=== PATIENT | female | born 1980 | race Two or more races ===

== ENCOUNTER 2019-09-16 18:17 | Emergency (ER) | payer MEDICAID, OTHER ==
[~2019-09-16] VITALS: Ht 152.4 cm; Wt 61.2 kg
[2019-09-16] MEDS ORDERED: Phenazopyridine 200mg tab ORAL ONE (18:30)
[2019-09-16 18:59] LABS: APPEARANCE,URINE VERY CLOUDY; BILIRUBIN, URINE NEGATIVE (NEGATIVE); COLOR,URINE PALE YELLOW; GLUCOSE, URINE (UA) NEGATIVE (NEGATIVE); KETONES,URINE NEGATIVE (NEGATIVE); LEUKOCYTE ESTERASE ,URINE 3+ (NEGATIVE); NITRITE,URINE POSITIVE (NEGATIVE); PH,URINE 9 (4.5-8.0); PROTEIN,URINE 4+ (NEGATIVE); UROBILINOGEN,URINE NORMAL MG/DL (0.0-1.0)
[2019-09-16] MEDS ORDERED: cefTRIAXone 1 GM in NS 55 ML IVPB ONE (19:00)
[2019-09-16] MEDS ORDERED: Hydrogen Peroxide 473ml Bottle TOPIC ONE (19:00)
[2019-09-16 19:02] VITALS: BP 130/87
[2019-09-16 19:24] LABS: BASOPHILS % (AUTO) 0.6 % (0.0-2.0); EOSINOPHILS % (AUTO) 3.2 % (0.0-3.0); HEMATOCRIT 38.1 % (37.0-47.0); LYMPHOCYTES % (AUTO) 25.6 % (20.0-45.0); MEAN CORPUSCULAR VOLUME 92 FL (80-99); NEUTROPHILS % (AUTO) 58.6 % (45.0-75.0); PLATELET COUNT 208 K/UL (150-450); RED BLOOD COUNT 4.16 M/UL (4.20-5.40); RED CELL DISTRIBUTION WIDTH 12.8 % (11.6-14.8); WHITE BLOOD COUNT 5.3 K/UL (4.8-10.8)
[2019-09-16 19:39] LABS: ANION GAP 10 mmol/L (5-15); BLOOD UREA NITROGEN 22 mg/dL (7-18); CALCIUM 8.7 MG/DL (8.5-10.1); CARBON DIOXIDE 27 MMOL/L (21-32); CHLORIDE 102 MMOL/L (98-107); POTASSIUM 3.5 MMOL/L (3.5-5.1); SODIUM 139 MMOL/L (136-145)
--- NOTE | 2019-09-16 20:05 | Emergency Room Report ---
History of Present Illness General Chief Complaint: Female Urogenital Problems Source: Patient (Kat Sanchez) Present Illness HPI 39 YO female presents to the ED c/o 10/11 in severity midline lower abdominal pain with dysuria and urinary frequency and urgency x 1 week. She reports fevers and chills x2 days. She denies nausea, vomiting or diarrhea. Patient does report some constipation and states that she has not had a bowel movement in 2 days and her last bowel movement she had to strain. Patient denies blood in the stool or black tarry stools. She denies suspicion of and states that she just ended her menstrual cycle. Patient denies suspicion of STI. She denies vaginal discharge. She denies genital rases or sores. Pt. denies blood in the urine. She also reports having hx of renal stone surgery 1 year ago in [place] and states that she has never gotten the ryan removed. Patient reports that she mentioned this to several doctors who did not want to remove the ryan. Patient reports tenderness superficially on the right side where ryan are. Patient reports they get caught on clothing often. Patient denies bleeding or discharge at this time. 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 (Kat Sanchez) Nursing Documentation-[facility] Past Medical History: No Stated History (Kat Sanchez) Physical Exam Vital Signs Date Time Temp Pulse Resp B/P (MAP) Pulse Ox O2 Delivery O2 Flow Rate FiO2 09/16/19 18:19 98.8 112 17 130/87 (101) 98 Room Air Sp02 EP Interpretation: reviewed, normal General Appearance: alert, GCS 15, non-toxic, moderate distress Head: normocephalic, atraumatic Eyes: bilateral eye normal inspection, bilateral eye PERRL ENT: hearing grossly normal, normal voice Neck: full range of motion Respiratory: lungs clear, normal breath sounds, speaking full sentences Cardiovascular #1: regular rate, rhythm, tachycardia Gastrointestinal: soft, non-distended, tenderness - severe midline lower abdominal tenderness. significant tenderness along surgical incision scar with crusting and retained ryan. Rectal: deferred Genitourinary: CVA tenderness (R) Musculoskeletal: back normal, normal range of motion, gait/station normal, non- tender Neurologic: alert, motor strength/tone normal, oriented x3, sensory intact, responsive, speech normal Psychiatric: judgement/insight normal Skin: other - approx 14 cm surgical scar in the right flank area with additional 3cm and 1.5cm nearby surgical incision scars. significant tenderness along surgical incision scar with crusting and retained ryan in the right flank area. (Kat Sanchez) Medical Decision Making PA Attestation Dr. Lucia Is my supervising Physician whom patient management has been discussed with. (Kat Sanchez) Diagnostic Impression: Primary Impression: UTI (urinary tract infection) Qualified Codes: N30.01 - Acute cystitis with hematuria Additional Impressions: CAROLYN (acute kidney injury) Removal of ryan ER Course 39 YO female presents to the ED c/o 10/11 in severity midline lower abdominal pain with dysuria and urinary frequency and urgency x 1 week. She reports fevers and chills x2 days. She denies nausea, vomiting or diarrhea. Patient does report some constipation and states that she has not had a bowel movement in 2 days and her last bowel movement she had to strain. Patient denies blood in the stool or black tarry stools. She denies suspicion of and states that she just ended her menstrual cycle. Patient denies suspicion of STI. She denies vaginal discharge. She denies genital rases or sores. Pt. denies blood in the urine. She also reports having hx of renal stone surgery 1 year ago in [place] and states that she has never gotten the ryan removed. Patient reports that she mentioned this to several doctors who did not want to remove the ryan. Patient reports tenderness superficially on the right side where ryan are. Patient reports they get caught on clothing often. Patient denies bleeding or discharge at this time. Ddx considered but are not limited to UTI, cellulitis, renal calculi, diverticulitis, acute appendicitis, diarrhea,UC, PUD, GE, pancreatitis, gallstone, ovarian torsion, ectopic , PID tubo-ovarian abscess, constipation or SBO. Vital signs: PT. is tachycardic on arrival with HR of 112, other VS are WNL, pt. is afebrile H&PE are most consistent with UTI, possible renal calculi. Mild cellulitis of surgical scar at the sites with retained ryan. Some scant purulent d/c noted after removal of ryan. ORDERS: -CBC: WNL no leukocytosis -CMP: Evidence of CAROLYN suggested by creatinine of 2 and increased BUN of 22 -LIPASE: WNL -UA: 5+ blood, elevated red blood cells, moderate amount of bacteria and increased inflammatory markers. Nitrite positive. All of these findings are very consistent with urinary tract infection. -URINE HCG: negative -CT Abdomen and Pelvis without contrast: ED INTERVENTIONS: -Pyridium PO -1g Rocephin IV - 1 Liter NS -removal of ryan from previous surgical incision site in the right flank area. DISPOSITION: pt. signed out to attending physician pending imaging results and final disposition. Labs Test 09/16/19 18:34 09/16/19 18:55 Urine Color Pale yellow Urine Appearance Very cloudy Urine pH 9 (4.5-8.0) Urine Specific [place] 1.015 (1.005-1.035) Urine Protein 4+ (NEGATIVE) Urine Glucose (UA) Negative (NEGATIVE) Urine Ketones Negative (NEGATIVE) Urine Blood 5+ (NEGATIVE) Urine Nitrite Positive (NEGATIVE) Urine Bilirubin Negative (NEGATIVE) Urine Urobilinogen Normal MG/DL (0.0-1.0) Urine Leukocyte Esterase 3+ (NEGATIVE) Urine RBC 10-15 /HPF (0 - 2) Urine WBC 20-30 /HPF (0 - 2) Urine Squamous Epithelial Cells Moderate /LPF (NONE/OCC) Urine Amorphous Sediment Many /LPF (NONE) Urine Bacteria Moderate /HPF (NONE) Urine HCG, Qualitative Negative (NEGATIVE) White Blood Count 5.3 K/UL (4.8-10.8) Red Blood Count 4.16 M/UL (4.20-5.40) Hemoglobin 12.0 G/DL (12.0-16.0) Hematocrit 38.1 % (37.0-47.0) Mean Corpuscular Volume 92 FL (80-99) Mean Corpuscular Hemoglobin 28.9 PG (27.0-31.0) Mean Corpuscular Hemoglobin Concent 31.4 G/DL (32.0-36.0) Red Cell Distribution Width 12.8 % (11.6-14.8) Platelet Count 208 K/UL (150-450) Mean Platelet Volume 6.5 FL (6.5-10.1) Neutrophils (%) (Auto) 58.6 % (45.0-75.0) Lymphocytes (%) (Auto) 25.6 % (20.0-45.0) Monocytes (%) (Auto) 12.0 % (1.0-10.0) Eosinophils (%) (Auto) 3.2 % (0.0-3.0) Basophils (%) (Auto) 0.6 % (0.0-2.0) Sodium Level 139 MMOL/L (136-145) Potassium Level 3.5 MMOL/L (3.5-5.1) Chloride Level 102 MMOL/L (98-107) Carbon Dioxide Level 27 MMOL/L (21-32) Anion Gap 10 mmol/L (5-15) Blood Urea Nitrogen 22 mg/dL (7-18) Creatinine 2.0 MG/DL (0.55-1.30) Estimat Glomerular Filtration Rate 28.0 mL/min (>60) Glucose Level 108 MG/DL (74-106) Calcium Level 8.7 MG/DL (8.5-10.1) Lipase 174 U/L (73-393) (Kat Sanchez) ER Course Please see above note. Patient examined and CT and labs reviewed. Parenteral antibiotics administered. Because of the stent, renal failure and infection patient needs continued antibiotics and urologic evaluation. Presented to Dr. Cavanaugh who accepts patient. Patient improved. (Jason Lucia MD) CT/MRI/US Diagnostic Results CT/MRI/US Diagnostic Results : Imaging Test Ordered: abd pelvis Impression IMPRESSION: 1. Severe right hydronephrosis status post double-J ureteral stent. Likely chronic obstruction with renal parenchymal thinning. 2. Moderate to severe left hydronephrosis. 3. Mild urinary bladder wall thickening with pericystic inflammatory change may represent underlying infectious process. 4. Cholelithiasis. (Jason Lucia MD) Last Vital Signs Date Time Temp Pulse Resp B/P (MAP) Pulse Ox O2 Delivery O2 Flow Rate FiO2 09/16/19 19:02 98.8 17 130/87 98 Room Air 09/16/19 18:19 112 (Kat Sanchez) Last Vital Signs Date Time Temp Pulse Resp B/P (MAP) Pulse Ox O2 Delivery O2 Flow Rate FiO2 09/17/19 00:10 98.5 96 14 127/82 100 Room Air Status: improved (Jason Lucia MD) Disposition: SHORT-TERM HOSP Condition: Serious Signed Out To: Dr. Lucia (Kat Sanchez) Referrals: [facility],REFERRING (PCP) Kat Sanchez Sep 16, 2019 20:05 Jason Lucia MD Sep 16, 2019 22:11
[2019-09-16] MEDS ORDERED: Bacitracin Oint UD TOPIC ONE (20:30)
--- NOTE | 2019-09-16 20:32 | Diagnostic Imaging Report ---
EXAM: CT Abdomen and Pelvis Without Intravenous Contrast CLINICAL HISTORY: PAIN TECHNIQUE: Axial computed tomography images of the abdomen and pelvis without intravenous contrast. CTDI is 4.9 mGy and DLP is 252.2 mGy-cm. One or more of the following dose reduction techniques were used: automated exposure control, adjustment of the mA and/or kV according to patient size, use of iterative reconstruction technique. COMPARISON: None available. FINDINGS: Limitations: Limited exam without intravenous contrast. Lung bases: Unremarkable. ABDOMEN: Liver: Unremarkable. Gallbladder and bile ducts: Large peripherally calcified gallstones, the largest measuring approximately 3.7 x 2.6 x 2.5 cm. Pancreas: Unremarkable. No ductal dilation. Spleen: Unremarkable. No splenomegaly. Adrenals: Unremarkable. No mass. Kidneys and ureters: Moderate to severe left and severe right hydroureteronephrosis. There is renal parenchymal thinning on the right suggesting chronic obstruction. Stomach and bowel: Unremarkable. No obstruction. No mucosal thickening. PELVIS: Appendix: No findings to suggest acute appendicitis. Bladder: Partially decompressed urinary bladder. Increased wall thickening which may be secondary to decompression. Mild pericystic inflammatory change. No stones. Reproductive: Unremarkable as visualized. ABDOMEN and PELVIS: Intraperitoneal space: Unremarkable. No free air. No significant fluid collection. Bones/joints: No acute fracture. No dislocation. Soft tissues: Unremarkable. Vasculature: Unremarkable. Lymph nodes: Unremarkable. No enlarged lymph nodes. Tubes, lines and devices: Double-J ureteral stent on the right. IMPRESSION: 1. Severe right hydronephrosis status post double-J ureteral stent. Likely chronic obstruction with renal parenchymal thinning. 2. Moderate to severe left hydronephrosis. 3. Mild urinary bladder wall thickening with pericystic inflammatory change may represent underlying infectious process. 4. Cholelithiasis.
[2019-09-16 21:50] VITALS: BP 124/82
[2019-09-16 22:30] VITALS: BP 131/78
[2019-09-17 00:10] VITALS: BP 127/82
== END 2019-09-17 00:10 | disposition short-term general hospital (02) ==
LOC: EMR 18:54
DX: N30.01 Acute cystitis with hematuria (principal); N17.9 Acute kidney failure, unspecified; K59.00 Constipation, unspecified; R00.0 Tachycardia, unspecified; Z48.02 Encounter for removal of sutures; K80.20 Calculus of gallbladder without cholecystitis without obstruction; N13.39 Other hydronephrosis
CPT/HCPCS: 36415; 74176; 80048; 81003; 81025; 83690; 85025; 87086; 87181; 96361; 96365; J0696; J7030; Z7502; 99284